=== PATIENT | female | born 1980 | race Caucasian/White ===

== ENCOUNTER 2017-02-27 09:19 | Emergency (ER) | payer BC ==
[2017-02-27 09:33] VITALS: RESP 16; TEMP 98
[2017-02-27] MEDS ORDERED: ONDANSETRON 4 MG/2 ML VIAL IVP ONE (09:41)
[2017-02-27] MEDS ORDERED: Sodium Chloride 0.9% 1,000 ML PRIMARY IV ONE (09:41)
[2017-02-27] MEDS ORDERED: KETOROLAC 15 MG/1 ML VIAL IVP ONE (09:41)
--- NOTE | 2017-02-27 09:47 | PDOC ---
Abdomen/Flank HPI - General Chief Complaint: Abdomen Pain Stated Complaint: "think my gallbladder is acting up" Date Seen by Provider: 02/27/17 Time Seen by Provider: 09:42 Source: POSITIVE: Patient Exam Limitations: POSITIVE: No limitations Nurse's Notes Reviewed & Considered: Yes - History of Present Illness Initial Comments: Patient comes in today with a chief complaint of abdominal pain. She is complaining with right upper quadrant abdominal pain that radiates into her epigastrium and lower chest. It is associated with diaphoresis and nausea but no vomiting. She also has diarrhea. She had one other episode several weeks ago that was very similar that resolved spontaneously. Her present symptoms began earlier this week and have escalated. She denies any fevers. She does have a headache, denies chest pain, or shortness of breath. She denies body aches, or joint aches. She denies any rashes. No hematuria or dysuria. Body Location Affected: REPORTS: Abdomen Timing: REPORTS: Abrupt, Getting Worse Duration: >24 hours Severity: Severe Quality: REPORTS: Cramping, "Pain", Sharpness, Throbbing Abdominal Pain Onset Location: REPORTS: RUQ Abdominal Pain Radiation: REPORTS: RUQ, Epigastric, Chest Context: REPORTS: None Modifying Factors: improves with: Nothing Associated Symptoms: REPORTS: Chills, Diaphoresis, Heartburn, Loss of Appetite, Nausea, Diarrhea Similar Symptoms Previously: Yes Recent Care Received: REPORTS: Denies Any Prior Injuries Related to Current Complaint?: No - Patient Home Medications Home Medications: Home Medications Levothyroxine Sodium [Synthroid] 1 tab PO DAILY #30 tab 05/30/15 Thyroid,Pork [Scobey Thyroid] 1 tab PO QD #30 tab 06/08/15 - Patient Allergies Allergies/Adverse Reactions: Allergies Allergy/AdvReac Type Severity Reaction Status Date / Time No Known Allergies Allergy Unverified 06/08/15 12:04 Past Medical History - heen HEENT History: Denies History Cardiovascular History: Other (please comment) Additional Cardiovasular History: Heart Murmur Respiratory History: Denies History Gastrointestinal History: Denies History Genitourinary History: Denies History Endocrine History: Hypothyroidism Musculoskeletal History: Other (please comment) Additional Musculoskeletal History: Hx of a right elbow repair Neurological History: Denies History Blood Disorders: Denies History Psychiatric History: Depression History of Sexually Transmitted Diseases: No Female Reproductive History: Hysterectomy Cancer History: Denies History In Past Year Been Physically Harmed or Verbally Threatened: No History of MDRO: No History of Other Communicable Diseases: No Tobacco Use: Never Smoker Alcohol Use: None Substance Use Type: None Previous Surgical History: Yes Type / Date of Surgery: MULTIPLE Anesthesia Reactions: No Malignant Hyperthermia: No Significant Family History: No pertinent family hx ROS - Limitations ROS Limitations: No Limitations Constitution: REPORTS: Chills, Diaphoresis Cardiovascular: REPORTS: Chest Pain Respiratory: REPORTS: Denies Resp Symptoms Neurological: REPORTS: Denies Neuro Symptoms Gastrointestinal: REPORTS: Abdominal Pain, Nausea, Diarrhea Endocrine: REPORTS: Denies Symptoms Musculoskeletal: REPORTS: Denies MS Symptoms Genitourinary: REPORTS: Denies Symptoms Eyes: REPORTS: Denies Symptoms ENT: REPORTS: Denies Symptoms Skin: REPORTS: Denies Skin Symptoms Lympathic: REPORTS: Denies Lympathic Symptoms Immunologic: POSITIVE: Denies Symptoms Psychiatric: POSITIVE: Denies Psych Symptoms Abdominal/Flank Pain PE - General Appearance General Appearance: POSITIVE: Alert, Cooperative - HEENT HEENT: POSITIVE: Head Inspection Nml, Eyes Inspection Nml, Ears Inspection Nml, Nose Inspection Nml, PERRL, EOMI - Neck Neck: POSITIVE: Normal Inspection, No Apparent Injury - Respiratory Respiratory: POSITIVE: No Respiratory Distress, Breath Sounds Normal, Chest Non- Tender - Cardiovascular Cardiovascular: POSITIVE: Regular Rate and Rhythm, Heart Sounds Normal - Chest Chest: POSITIVE: Non Tender - Abdomen Abdomen: Soft: (All Quadrants), Normal Bowel Sounds: (All Quadrants), Tenderness Noted: (RUQ), Guarding: (RUQ) - Back Back: POSITIVE: Normal Inspection - Skin Skin: POSITIVE: Intact, Normal For Race, Warm, Dry, No Rash - Extremities Extremity: Non-Tender: (All Extremities), Normal ROM: (All Extremities), Normal Inspection: (All Extremities), Pelvis Stable: (All Extremities) - Neurological Neurological: POSITIVE: Affect Apporpriate, Oriented X3, Motor Normal, Sensation Normal - Psychological Psychiatric: POSITIVE: Affect Appropriate, Mood Appropriate Abdomen Progress - Results Reviewed by me Xrays/CTs/US Reviewed by me: Yes Discussed with Radiologist: Yes Lab Results Reviewed: Yes Lab Results:: Laboratory Results 02/27/17 02/27/17 Range/Units 09:47 10:13 WBC 6.40 (4.8-10.8) 10^3/uL RBC 4.82 (4.20-5.40) 10^6/uL Hgb 14.4 (12.0-16.0) g/dL Hct 42.5 (37.0-47.0) % MCV 88.2 (81-99) FL MCH 29.9 (27-31) PG MCHC 33.9 (33-37) g/dL RDW Std Deviation 41.6 (39-50) fL RDW Coeff of Benita 13.0 (11.5-14.5) % Plt Count 243 (140-350) 10*3/uL MPV 9.0 (7.4-12.2) FL Immature Gran % (Auto) 0.5 (0-5) % Neut % (Auto) 61.5 (50-80) % Lymph % (Auto) 28.0 (10-50) % Winkler % (Auto) 7.5 (5-15) % Eos % (Auto) 2.0 (0-8) % Baso % (Auto) 0.5 (0-1) % Immature Gran # (Auto) 0.03 10*3/UL Neut # (Auto) 3.94 10*3/UL Lymph # (Auto) 1.79 10*3/uL Winkler # (Auto) 0.48 (0.3-0.8) 10*3/UL Eos # (Auto) 0.13 10*3/UL Baso # (Auto) 0.03 10*3/UL WBC Morphology Comment Normal morphology (NORM) Plt Morphology Comment Normal morphology (NORM) RBC Morph Comment Normal morphology (NORM) Sodium 138 (135-145) meq/L Potassium 4.0 (3.8-5.2) meq/L Chloride 103 (98-112) meq/L Carbon Dioxide 24 (23-33) meq/L Anion Gap 11 (5-20) BUN 17 (7-22) mg/dL Creatinine 0.6 (0.50-1.20) mg/dL Estimated GFR > 60 (>60 ml/min/1.73m(2)) BUN/Creatinine Ratio 28.33 H (6-20) Glucose 109 (78-110) mg/dL Calculated Osmolality 288.0 (267-292) mOsm/kg Calcium 9.1 (8.7-10.7) mg/dL Magnesium 1.9 (1.6-2.4) mg/dL Total Bilirubin 0.8 (0.3-1.2) mg/dL AST 27 (8-39) IU/L ALT 35 (9-52) IU/L Alkaline Phosphatase 61 (38-126) IU/L Total Protein 7.6 (6.1-8.0) g/dL Albumin 4.3 (3.5-4.8) g/dL Globulin 3.4 (2.50-4.10) g/dL Albumin/Globulin Ratio 1.20 L (1.3-2.0) mg/g Amylase 53 (30-110) U/L Lipase 74 (23-300) IU/L - Patient's Progress Pain Medication Addressed: POSITIVE: Yes Re-examine Time: 11:57 Status: POSITIVE: Improved MDM / ED Course: Patient was examined, IV started, blood drawn and sent to the lab for studies, ultrasound of her abdomen was obtained. The patient's time here in the emergency room she received Toradol, Zofran, morphine sulfate, and normal saline. The initial pain medication of Toradol worked for approximately an hour and then her pain came back. She was then provided with morphine sulfate which resulted in improvement of her pain. Findings: Comprehensive metabolic panel is within normal limits. CBC is within normal limits. Ultrasound of her abdomen shows no acute intra-abdominal abnormalities. Assessment: Abdominal pain most likely related to dyskinetic gallbladder. Plan: Discharge home, scheduled for HIDA scan, follow-up with general surgery and Dr. Perez. Patient receives a prescription for [place], Zofran, and instructions to return here to the emergency room she has increasing signs or symptoms and to follow-up with Dr. Perez. - Consult Consult (If Yes, Name of Consulting MD & Time Called): Yes ( Dr. Perez) Consulting MD will see pt:: POSITIVE: In Office Counseled: POSITIVE: Patient, Family, RE: Lab Results, RE: Radiology Results, RE : DX, RE: Need for F/U Patient Care Time - Estimated PCT Patient Care Time (In Minutes): 30 Vital Signs - Recent Vital Signs Vital Signs: Vital Signs (Last 8 hours) Temp Pulse Resp BP Pulse Ox 02/27/17 09:28 98 F 81 16 115/82 96 - VS Reviewed Vital Signs Reviewed: Yes Discharge Clinical Impression: Abdominal pain Discharge Disposition: Discharged to Home Condition: Stable Patient Instructions Given at Discharge: Biliary Colic (ED), Acute Abdominal Pain (ED)
[2017-02-27 09:50] LABS: BASOPHILS # (AUTO) 0.03 10*3/UL; BASOPHILS % (AUTO) 0.5 % (0-1); EOSINOPHILS # (AUTO) 0.13 10*3/UL; HEMATOCRIT 42.5 % (37.0-47.0); HEMOGLOBIN 14.4 g/dL (12.0-16.0); LYMPHOCYTES # (AUTO) 1.79 10*3/uL; MEAN CORPUSCULAR HEMOGLOBIN 29.9 PG (27-31); MEAN CORPUSCULAR HGB CONC 33.9 g/dL (33-37); MEAN CORPUSCULAR VOLUME 88.2 FL (81-99); MONOCYTES # (AUTO) 0.48 10*3/UL (0.3-0.8); MONOCYTES % (AUTO) 7.5 % (5-15); NEUTROPHILS # (AUTO) 3.94 10*3/UL; NEUTROPHILS % (AUTO) 61.5 % (50-80); RED BLOOD COUNT 4.82 10^6/uL (4.20-5.40)
[2017-02-27 09:52] LABS: PLATELET MORPHOLOGY COMMENT NORMAL MORPHOLOGY (NORM); RBC MORPHOLOGY COMMENT NORMAL MORPHOLOGY (NORM); WBC MORPHOLOGY COMMENT NORMAL MORPHOLOGY (NORM)
[2017-02-27 09:59] LABS: BLOOD UREA NITROGEN 17 mg/dL (7-22); BUN/CREATININE RATIO 28.33 (6-20); CALCIUM 9.1 mg/dL (8.7-10.7); EST GLOMERULAR FILTRATION > 60 (>60 ml/min/1.73m(2)); MAGNESIUM 1.9 mg/dL (1.6-2.4); SERUM ALBUMIN 4.3 g/dL (3.5-4.8)
[2017-02-27 10:48] LABS: LIPASE 74 IU/L (23-300)
[2017-02-27] MEDS ORDERED: MORPHINE SULFATE 4 MG/1 ML IVP ONE (11:23)
--- NOTE | 2017-02-27 11:47 | DI ---
US ABDOMEN COMPLETE,02/27/2017 9:41 AM: Clinical History: Right upper quadrant pain. Previous Exam: None at this facility. Findings: Multiple transabdominal grayscale and color Doppler sonographic images are obtained through the abdom en, and demonstrate a normal-appearing aorta. The liver is unremarkable. The right kidney is normal m easuring 11.4 cm in length without hydronephrosis nor nephrolithiasis. The gallbladder appears grossly normal with gallbladder wall measuring 3 mm. The spleen is normal. The left kidney is not well seen on this exam, but there is no hydronephrosis, and the kidney measures 11.6 cm in length. The common bile duct measures 2 mm. Impression: Normal abdominal ultrasound.
== END 2017-02-27 12:34 | disposition home or self-care (01) ==
LOC: ER 09:19
DX: R10.11 Right upper quadrant pain (principal); R11.0 Nausea; R51 Headache; R10.13 Epigastric pain; R07.89 Other chest pain; R19.7 Diarrhea, unspecified
CPT/HCPCS: 76700; 80053; 82150; 83690; 83735; 85025; 96361; 96374; 96375; 99283; J1885; J2270; J2405; J7030

== ENCOUNTER → 2017-03-01 | Outpatient (CLI) | payer BC ==
--- NOTE | 2017-03-01 18:02 | DI ---
Tc-99 HIDA BILIARY SCAN WITH FATTY MEAL CHALLENGE, 03/01/2017 11:00 AM : Clinical History: Right upper quadrant pain Previous Related Exam: None. The patient was injected with 6.5 mCi mCi of Tc-99 Choletec, a HIDA compound. An anterior dynamic flow study was performed followed by sequential anterior imaging at one minute in tervals out to 60 minutes. The patient was then given a 38 gm fatty challenge and sequential anterior imaging at one minute inte rvals was carried out to 60 minutes for the gall bladder ejection phase. The patient did not experience symptoms following the fatty meal challenge. Gall bladder ejection fraction was calculated to be 73 %. Reading: Normal excretory Tc-99 HIDA biliary kinetics.
== END ==
LOC: NM 10:59
PROVIDERS: ATTEND Family Medicine
DX: R10.11 Right upper quadrant pain (principal)
CPT/HCPCS: 78226; A9537

== ENCOUNTER → 2017-03-08 | Outpatient (CLI) | payer BC ==
--- NOTE | 2017-03-10 10:43 | DI ---
CT ABD W/CN AND PELVIS W/CN,03/08/2017 7:42 AM: Clinical History: Right upper quadrant pain Previous Exam: None at this facility. Findings: Multiple helically acquired CT images are obtained through the abdomen and pelvis with oral and IV co ntrast. There is mild diffuse fatty infiltration of the liver. The gallbladder is unremarkable. Lung bases are clear. Patient is status post bilateral breast augmentation. The urinary bladder is enlarged and distended. There is a large amount of dried stool throughout the colon. The appendix is normal. There is no mesenteric nor retroperitoneal lymphadenopathy. There is some mild subsegmental atelectas is in the right lung base and a very small right pleural effusion. The anterior abdominal wall is unremarkable. There is no evidence of herniation. Impression: No acute intra-abdominal pathology.
== END ==
LOC: CT 07:36
PROVIDERS: ATTEND Surgery
DX: R10.11 Right upper quadrant pain (principal)
CPT/HCPCS: 74177

== ENCOUNTER 2017-03-20 07:25 | Day surgery (SDC) | payer BC ==
[~2017-03-20 07:25] MED LIST: LIDOCAINE 2% VISCOUS(20 MG/1 ML) - 15 ML UD CUP PO ONE; LIDOCAINE W/ SODIUM BICARB 0.5 ML SYR ONE; Lactated Ringers 1,000 ML PRIMARY IV ONE; fentaNYL Inj 100 MCG/2 ML VIAL ONE
--- NOTE | 2017-03-20 09:06 | GEN.OPNOTE ---
EGD / Colonoscopy Report Surgery Date: 03/20/17 Preoperative Diagnosis: Right-sided abdominal pain. History of H. pylori gastritis. Postoperative Diagnosis: Same. Procedure: #1 esophagogastroduodenoscopy with biopsy. #2 complete colonoscopy. Surgeon: Rony Perez MD Anesthesia Provider: Jaya Rock CRNA Anesthesia Type: MAC Indications: Patient with right-sided abdominal pain. Has had a CT scan which was unremarkable. Had a gallbladder ultrasound and HIDA scan which were normal. For ongoing abdominal pain we proceeded with upper and lower endoscopy. EGD Findings: Esophagus: [Normal] GE Junction : [Normal] Fundus : [Normal] Body : [Normal] Prepyloric : [Normal] Small Intestine : [Normal] A lubricated flexible upper endoscope was inserted and passed through the esophagus and stomach into the duodenum. The duodenum and duodenal bulb were unremarkable. Pyloric channel was patent. Entire gastric mucosa was unremarkable. Antral biopsies were taken to rule out H. pylori. Hemostasis was assured. The scope was withdrawn into the distal esophagus. Several biopsies at and above the GE junction were taken. Hemostasis was assured. The scope was withdrawn through the remainder of a normal-appearing esophagus and brought through the hypopharynx under suction completing the procedure. Colonoscopy Findings: Prep : [Very good] Cecum : [Normal] Ascending : [Normal] Transverse : [Normal] Sigmoid : [Normal] Rectum : [Normal] Digital Rectal Exam : [Normal] Anoscopy:[Normal without significant hemorrhoidal tissue. Some inflammation. Consistent with recent bowel prep] A lubricated flexible colonoscope was inserted and passed to the blind end of the cecum. Ileocecal valve and appendiceal orifice were clearly seen. Terminal ileum was intubated and was visually normal. Air was aspirated as the scope was withdrawn. The entire colonoscopy was normal without polyp, tumor, neoplastic mass, infectious or inflammatory process. The scope was withdrawn completing the procedure. Patient tolerated all aspects of the procedure well without complication. She was taken to outpatient surgery in stable condition. Follow-up will be with my office on an as-needed basis. We will call the biopsy results and plan therapy and follow-up accordingly.
[2017-03-20 10:10] VITALS: RESP 14; TEMP 98.5
[2017-03-20] MEDS ORDERED: LIDOCAINE W/ SODIUM BICARB 0.5 ML SYR ONE (11:19)
== END 2017-03-20 09:30 | disposition home or self-care (01) ==
LOC: SDSC 07:25
PROVIDERS: ATTEND Surgery
DX: R10.11 Right upper quadrant pain (principal)
CPT/HCPCS: 43239; 45378; J2704; J3010; J7120

== ENCOUNTER 2017-03-21 23:25 | Emergency (ER) | payer BC ==
[2017-03-21] MEDS ORDERED: Sodium Chloride 0.9% 1,000 ML PRIMARY IV ONE (23:43)
[2017-03-21] MEDS ORDERED: NORMAL SALINE 10 ML SYRINGE FLUSH IVP PRN (23:43)
[2017-03-21] MEDS ORDERED: ONDANSETRON 4 MG/2 ML VIAL IVP ONE (23:43)
[2017-03-21] MEDS ORDERED: MORPHINE SULFATE 4 MG/1 ML IVP ONE (23:46)
[2017-03-22 00:21] LABS: BASOPHILS # (AUTO) 0.04 10*3/UL; BASOPHILS % (AUTO) 0.5 % (0-1); EOSINOPHILS # (AUTO) 0.18 10*3/UL; HEMATOCRIT 40.7 % (37.0-47.0); HEMOGLOBIN 13.7 g/dL (12.0-16.0); LYMPHOCYTES # (AUTO) 2.95 10*3/uL; MEAN CORPUSCULAR HEMOGLOBIN 29.8 PG (27-31); MEAN CORPUSCULAR HGB CONC 33.7 g/dL (33-37); MEAN CORPUSCULAR VOLUME 88.5 FL (81-99); MONOCYTES # (AUTO) 0.74 10*3/UL (0.3-0.8); MONOCYTES % (AUTO) 8.3 % (5-15); NEUTROPHILS % (AUTO) 55.2 % (50-80)
[2017-03-22 00:24] LABS: PLATELET MORPHOLOGY COMMENT NORMAL MORPHOLOGY (NORM); RBC MORPHOLOGY COMMENT NORMAL MORPHOLOGY (NORM); WBC MORPHOLOGY COMMENT NORMAL MORPHOLOGY (NORM)
[2017-03-22 00:35] LABS: BLOOD UREA NITROGEN 16 mg/dL (7-22); BUN/CREATININE RATIO 22.85 (6-20); C-REACTIVE PROTEIN 0.5 mg/dL (0.0-0.9); CALCIUM 8.7 mg/dL (8.7-10.7); EST GLOMERULAR FILTRATION > 60 (>60 ml/min/1.73m(2)); LIPASE 214 IU/L (23-300); SERUM ALBUMIN 4.1 g/dL (3.5-4.8)
[2017-03-22] MEDS ORDERED: DICYCLOMINE 20 MG TABLET PO SCH (01:45)
--- NOTE | 2017-03-22 03:19 | PDOC ---
Abdomen/Flank HPI - General Chief Complaint: Abdomen Pain Stated Complaint: RUQ PAIN Date Seen by Provider: 03/21/17 Time Seen by Provider: 23:40 Source: POSITIVE: Patient Exam Limitations: POSITIVE: No limitations Nurse's Notes Reviewed & Considered: Yes - History of Present Illness Initial Comments: The patient is a 36-year-old female who presents to the emergency department with right upper quadrant abdominal pain. She states that she has had right upper quadrant abdominal pain now for the past month. She states that her pain is fairly constant although waxes in intensity. She initially presented to the emergency department with this pain on February 27. She underwent lab work which was unremarkable and a gallbladder ultrasound that was normal. She was set up for a HIDA scan and followed up with general surgery. Her HIDA scan ended up being normal and she subsequently underwent CT scan of the abdomen and pelvis which showed no obvious etiology. She just completed upper and lower endoscopies 2 days ago and apparently the findings were unremarkable. She states that her pain is constant and does not seem to be worsened with taking a deep breath, eating or with movement. She states that this evening she is taken to hydrocodone and Aleve without any pain relief. She has associated nausea however has not had any vomiting. She has occasional constipation although denies any recent blood in her stool or diarrhea. She has had previous hysterectomy however denies any other abdominal surgeries. - Patient Home Medications Home Medications: Home Medications Levothyroxine Sodium 1 tab PO DAILY tab 03/05/17 Acet/Butalb/Caff 325-50-40 [Fioricet] 1 tab PO Q4H PRN 03/20/17 Multivit-Min/Folic Acid/Biotin [Hair, Skin & Nails Caplet] 1 each PO DAILY 03/20 Dicyclomine HCl [Bentyl] 20 mg PO Q6H PRN #30 tablet 03/22/17 Hydrocodone Bit/Acetaminophen [Hydrocodon-Acetaminophen 5-325] 1 tab PO Q4H PRN 03/22/17 - Patient Allergies Allergies/Adverse Reactions: Allergies Allergy/AdvReac Type Severity Reaction Status Date / Time No Known Allergies Allergy Verified 03/22/17 00:14 Past Medical History - heen HEENT History: Denies History Cardiovascular History: Other (please comment) Additional Cardiovasular History: Heart Murmur Respiratory History: Denies History Gastrointestinal History: Denies History Additional Gastrointestinal History: ABD PAIN/ CONSTIPATION/DIARRHEA Genitourinary History: Denies History Endocrine History: Hypothyroidism Musculoskeletal History: Other (please comment) Prosthesis or Implant: Yes (BILAT BREASTS) Additional Musculoskeletal History: Hx of a right elbow repair Neurological History: Migraines Blood Disorders: Denies History Psychiatric History: Denies History History of Sexually Transmitted Diseases: No Cancer History: Denies History History of MDRO: No History of Other Communicable Diseases: Yes (VARICELLA) Alcohol Use: None Substance Use Type: None Previous Surgical History: Yes Type / Date of Surgery: HYST/ ULNAR REPAIR/ TONSILLECTOMY/ BREAST AUG/ BILAT CTR / KNEE SCOPE/ Anesthesia Reactions: Yes (PONV) Malignant Hyperthermia: No Significant Family History: Cancer Past Medical History Reviewed: Reviewed - No Changes ROS - Limitations ROS Limitations: No Limitations Constitution: DENIES: Chills, Fever Cardiovascular: REPORTS: Denies Cardiac Symptoms Respiratory: REPORTS: Denies Resp Symptoms Neurological: REPORTS: Denies Neuro Symptoms Gastrointestinal: REPORTS: Abdominal Pain, Nausea, Constipation. DENIES: Vomitting, Diarrhea, Black Stools, Bloody Stools Musculoskeletal: REPORTS: Denies MS Symptoms Genitourinary: REPORTS: Denies Symptoms Eyes: REPORTS: Denies Symptoms ENT: REPORTS: Denies Symptoms Skin: DENIES: Rash Abdominal/Flank Pain PE - General Appearance General Appearance: POSITIVE: Alert, Cooperative, No Acute Distress - HEENT HEENT: POSITIVE: Head Inspection Nml, Eyes Inspection Nml, Ears Inspection Nml, Nose Inspection Nml - Neck Neck: POSITIVE: Normal Inspection - Respiratory Respiratory: POSITIVE: No Respiratory Distress, Breath Sounds Normal - Cardiovascular Cardiovascular: POSITIVE: Regular Rate and Rhythm, Heart Sounds Normal Peripheral Pulses: Dorsalis-pedis (R): 2+, Dorsalis-pedis (L): 2+ - Abdomen Abdomen: Soft: (All Quadrants), Normal Bowel Sounds: (All Quadrants), No Guarding: (All Quadrants), No Rebound: (All Quadrants), No Distention: (All Quadrants) Additional Abdominal Details: She does have tenderness primarily in the right upper quadrant with some tenderness extending to the epigastric region, no guarding or rebound tenderness , no tenderness over the chest wall - Skin Skin: POSITIVE: Intact, No Rash - Extremities Extremity: Normal ROM: (All Extremities), Normal Inspection: (All Extremities) - Neurological Neurological: POSITIVE: Oriented X3, Motor Normal, Sensation Normal Abdomen Progress - Results Reviewed by me Lab Results Reviewed: Yes Lab Results:: Laboratory Results 03/22/17 Range/Units 00:05 WBC 8.87 (4.8-10.8) 10^3/uL RBC 4.60 (4.20-5.40) 10^6/uL Hgb 13.7 (12.0-16.0) g/dL Hct 40.7 (37.0-47.0) % MCV 88.5 (81-99) FL MCH 29.8 (27-31) PG MCHC 33.7 (33-37) g/dL RDW Std Deviation 40.8 (39-50) fL RDW Coeff of Benita 12.7 (11.5-14.5) % Plt Count 226 (140-350) 10*3/uL MPV 9.0 (7.4-12.2) FL Immature Gran % (Auto) 0.7 (0-5) % Neut % (Auto) 55.2 (50-80) % Lymph % (Auto) 33.3 (10-50) % Haines % (Auto) 8.3 (5-15) % Eos % (Auto) 2.0 (0-8) % Baso % (Auto) 0.5 (0-1) % Immature Gran # (Auto) 0.06 10*3/UL Neut # (Auto) 4.90 10*3/UL Lymph # (Auto) 2.95 10*3/uL Haines # (Auto) 0.74 (0.3-0.8) 10*3/UL Eos # (Auto) 0.18 10*3/UL Baso # (Auto) 0.04 10*3/UL WBC Morphology Comment Normal morphology (NORM) Plt Morphology Comment Normal morphology (NORM) RBC Morph Comment Normal morphology (NORM) D-Dimer 0.44 (0.00-0.59) mg/L Sodium 137 (135-145) meq/L Potassium 3.5 L (3.8-5.2) meq/L Chloride 105 (98-112) meq/L Carbon Dioxide 23 (23-33) meq/L Anion Gap 9 (5-20) BUN 16 (7-22) mg/dL Creatinine 0.7 (0.50-1.20) mg/dL Estimated GFR > 60 (>60 ml/min/1.73m(2)) BUN/Creatinine Ratio 22.85 H (6-20) Glucose 103 (78-110) mg/dL Calculated Osmolality 284.0 (267-292) mOsm/kg Calcium 8.7 (8.7-10.7) mg/dL Total Bilirubin 0.3 (0.3-1.2) mg/dL AST 26 (8-39) IU/L ALT 23 (9-52) IU/L Alkaline Phosphatase 76 (38-126) IU/L C-Reactive Protein 0.5 (0.0-0.9) mg/dL Total Protein 7.1 (6.1-8.0) g/dL Albumin 4.1 (3.5-4.8) g/dL Globulin 3.0 (2.50-4.10) g/dL Albumin/Globulin Ratio 1.30 (1.3-2.0) mg/g Amylase 65 (30-110) U/L Lipase 214 (23-300) IU/L - Patient's Progress MDM / ED Course: An IV was established and she received 4 mg of morphine and 4 mg of Zofran IV. She did have improvement in pain however the pain did not resolve completely. Her lab work today is completely unremarkable with a normal white blood cell count, normal liver enzymes, normal pancreatic enzymes and normal d-dimer. Review of recent workup also has been unremarkable including a negative CT of the abdomen and pelvis, gallbladder ultrasound, HIDA scan, upper and lower endoscopies and previous blood work. At this point the etiology of her pain is unclear. She was advised that this may represent some type of irritable bowel syndrome. Will try Bentyl 20 mg every 6 hours as needed for abdominal pain. She was advised to follow-up with Dr. Perez. She'll return to the emergency room if increased pain, fever, vomiting or dehydration, any worsening or change in symptoms. - Consult Counseled: POSITIVE: Patient, RE: Lab Results, RE: DX, RE: Need for F/U Patient Care Time - Estimated PCT Patient Care Time (In Minutes): 35 Vital Signs - VS Reviewed Vital Signs Reviewed: Yes (written nursing documentation reviewed) Discharge Clinical Impression: Abdominal pain Discharge Disposition: Discharged to Home Condition: Stable Prescriptions / Orders: Dicyclomine HCl [Bentyl] 20 mg PO Q6H PRN #30 tablet PRN Reason: Abdominal Cramps / Pain Patient Instructions Given at Discharge: Abdominal Pain (ED) Additional Instructions: The exact cause of your abdominal pain remains unclear. Your blood work from today showed no evidence of infection, no inflammation in the liver pancreas, normal electrolytes and kidney function, no evidence of blood clot. In addition you have had extensive testing recently including CT scan of the abdomen and pelvis, gallbladder ultrasound, HIDA scan of the gallbladder, upper and lower endoscopies which have failed to reveal a cause of your pain as well. It is possible that this pain may represent some form of irritable bowel syndrome. Will try Bentyl 20 mg every 6 hours as needed for abdominal pain. Return to the emergency room if increased pain, fever, vomiting or dehydration, any worsening or change in symptoms. Recommend follow-up with Dr. Perez, call his office tomorrow to arrange follow-up. Follow Up With: CARMELLA GABRIEL [Primary Care Provider] -
[2017-03-22 04:48] VITALS: RESP 18; TEMP 97.4
== END 2017-03-22 02:01 | disposition home or self-care (01) ==
LOC: ER 23:25
DX: R10.11 Right upper quadrant pain (principal); R11.0 Nausea; K59.00 Constipation, unspecified; R10.13 Epigastric pain
CPT/HCPCS: 80053; 82150; 83690; 85025; 85379; 86140; 96374; 96375; 99283; J2270; J2405; J7030

== ENCOUNTER → 2017-05-15 | Outpatient (CLI) | payer BC ==
--- NOTE | 2017-05-15 18:08 | DI ---
XR KNEE 3 VW,05/15/2017 9:47 AM: Clinical History: Right knee pain Previous Exam: None at this facility. Findings: AP lateral and sunrise views of the right knee are obtained, and demonstrate anatomic alignment witho ut fractures. Surrounding soft tissues are unremarkable. Impression: Normal right knee.
== END ==
LOC: RAD 09:38
PROVIDERS: ATTEND Orthopaedic Surgery
DX: M25.561 Pain in right knee (principal)
CPT/HCPCS: 73562